=== PATIENT | female | born 2000 | race Hispanic/Latino ===

== ENCOUNTER → 2020-01-10 | Emergency (ER) | payer SELFPAY ==
[~2020-01-10] VITALS: Ht 154.9 cm; Wt 78.9 kg
[~2020-01-10] MED LIST: ALBUTEROL SULF 0.083% NEB SOLN 3 ML NEB NEB STA; ATROVENT15 ML; IPRATROPIUM BROMIDE 0.02% 2.5 ML NEB NEB STA; METHYLPREDNISOLONE SOD SUCC 125 MG/2ML VIAL IV STA; SINGULAIR5 MG; XOPENEX0.63 MG/3
[2020-01-10 11:42] LABS: BASOPHILS # (AUTO) 0.1 (0.0-0.1); BASOPHILS % 0.9 % (0.0-1.0); EOSINOPHILS # (AUTO) 0.8 (0.0-0.4); EOSINOPHILS % 9.3 % (0.0-6.0); HEMATOCRIT 39.9 % (34.2-44.1); HEMOGLOBIN 12.8 g/dL (12.0-16.0); LYMPHOCYTES # (AUTO) 2.2 (1.0-3.2); LYMPHOCYTES % 27.2 % (18.0-39.1); MEAN CORPUSCULAR HEMOGLOBIN 26.1 pg (28-32); MEAN CORPUSCULAR HGB CONC 32.1 g/dL (31-35); MEAN CORPUSCULAR VOLUME 81.4 fL (81-99); MONOCYTES # (AUTO) 0.4 (0.2-0.8); MONOCYTES % 4.8 % (4.4-11.3); NEUTROPHILS # (AUTO) 4.7 (2.1-6.9); NEUTROPHILS % 57.6 % (38.7-80.0); PLATELET COUNT 342 x10e3/uL (140-360); RED CELL DISTRIBUTION WIDTH 12.9 % (11.7-14.4)
[2020-01-10 12:07] LABS: ALANINE AMINOTRANSFERASE 25 IU/L (0-55); ALBUMIN/GLOBULIN RATIO 1.1 (0.8-2.0); ALKALINE PHOSPHATASE 92 IU/L (40-150); ANION GAP 8.2 mmol/L (8-16); BLOOD UREA NITROGEN 9 mg/dL (7-26); BUN/CREATININE RATIO 12 (6-25); CALCIUM 9.2 mg/dL (8.4-10.2); CARBON DIOXIDE 26 mmol/L (22-29); CHLORIDE 108 mmol/L (98-107); CREATININE, SERUM 0.75 mg/dL (0.57-1.11); EST GLOMERULAR FILTRATION RATE > 60 ML/MIN (60-); GLUCOSE 92 mg/dL (74-118); POTASSIUM 4.2 mmol/L (3.5-5.1); SODIUM 138 mmol/L (136-145)
--- NOTE | 2020-01-10 12:40 | Diagnostic Imaging Report ---
EXAMINATION: CHEST 2 VIEWS INDICATION: Chest pain COMPARISON: None FINDINGS: PA and lateral views TUBES and LINES: None. LUNGS: Lungs are well inflated. Lungs are clear. There is no evidence of pneumonia or pulmonary edema. PLEURA: No pleural effusion or pneumothorax. HEART AND MEDIASTINUM: The cardiomediastinal silhouette is unremarkable. BONES AND SOFT TISSUES: No acute osseous lesion. Soft tissues are unremarkable. UPPER ABDOMEN: No free air under the diaphragm. IMPRESSION: No acute thoracic radiographic abnormality. Signed by: Eagle White MD on 01/10/2020 12:38 PM
== END | disposition home or self-care (01) ==
LOC: ER 10:25
DX: R05 Cough (principal); R06.00 Dyspnea, unspecified; J20.9 Acute bronchitis, unspecified
CPT/HCPCS: 36415; 71046; 80053; 85025; 85379; 87400; 94640; 99284; J2930